=== PATIENT | female | born 1960 | race Hispanic/Latino ===

== ENCOUNTER 2021-07-16 01:16 | Emergency (ER) | payer SELFPAY ==
[~2021-07-16] VITALS: Ht 160 cm; Wt 75.7 kg
[2021-07-16] MEDS ORDERED: ONDANSETRON HCL 4 MG ORAL DISINTEGRATING TAB PO ONE (02:30)
[2021-07-16] MEDS ORDERED: ONDANSETRON ODT4 MG PO (02:30)
[2021-07-16 02:50] VITALS: BP 146/85
== END 2021-07-16 02:50 | disposition home or self-care (01) ==
LOC: FSED 02:20
DX: R05 Cough (principal); B34.9 Viral infection, unspecified; I10 Essential (primary) hypertension
CPT/HCPCS: 87400; 99283; Q0162

== ENCOUNTER 2022-02-05 20:16 | Emergency (ER) | payer SELFPAY ==
[~2022-02-05] VITALS: Ht 160 cm; Wt 77.1 kg
[~2022-02-05 20:16] MED LIST: ONDANSETRON ODT4 MG PO
[2022-02-05] MEDS ORDERED: IBUPROFEN 600 MG TAB PO STA (20:48)
[2022-02-05] MEDS ORDERED: IBUPROFEN 600 MG TAB ONE (21:03)
[2022-02-05] MEDS ORDERED: AUGMENTIN 500-1 EACH PO (21:11)
[2022-02-05 21:19] VITALS: BP 142/68
== END 2022-02-05 21:15 | disposition home or self-care (01) ==
LOC: FSED 20:29
DX: R50.9 Fever, unspecified (principal); J02.0 Streptococcal pharyngitis
CPT/HCPCS: 83518; 87400; 99283

== ENCOUNTER 2022-04-22 13:54 | Emergency (ER) | payer SELFPAY ==
[~2022-04-22] VITALS: Ht 160 cm; Wt 79.4 kg
[~2022-04-22 13:54] MED LIST changes: +AUGMENTIN 500-1 EACH PO
[2022-04-22] MEDS ORDERED: DOXYCYCLINE HY100 MG PO (14:58)
[2022-04-22] MEDS ORDERED: CLEOCIN HCL300 MG PO (14:58)
[2022-04-22] MEDS ORDERED: CLINDAMYCIN PHOS 300MG/2ML VIAL IM ONE (15:00)
[2022-04-22] MEDS ORDERED: Clindamycin INJ 150 MG/ML 600 MG Vial ONE (15:17)
== END 2022-04-22 15:36 | disposition home or self-care (01) ==
LOC: FSED 14:15
DX: L02.212 Cutaneous abscess of back [any part, except buttock and flank] (principal); R53.1 Weakness
CPT/HCPCS: 99282